=== PATIENT | male | born 1990 | race Caucasian/White ===

== ENCOUNTER 2023-06-07 15:44 | Emergency (ER) | payer OTHER, SELFPAY ==
[2023-06-07 15:52] VITALS: BP 155/89
[2023-06-07] MEDS: TOBREX 0.3% EYE DROPS 1 DROP OPHTH (18:37)
--- NOTE | 2023-06-07 20:46 | ED.SKININJ ---
HPI-Injury
General
Chief Complaint: Eye Problems
Source: patient
Exam Limitations: none
Time Seen by Provider: 06/07/23 18:10
Nursing documentation reviewed up to this point in time: agreed with
Travel History
Have you had any contact with someone who has COVID-19?: No
Do you have any symptoms of coronavirus? Fever > 100 degrees, chills, cough, shortness of breath, sore throat, loss of taste or smell, muscle aches, or headache?: No
History of Present Illness-Injury
Is this injury a work related problem?: No
Is pt an associate of [facility]?: No
Initial Injury comments:
Patient to ED with FB sensation to left eye. States he was grinding metal and felt something get into his eye. Incident occurred today. Brought self to ED for eval.
Past History
Past History
ED Past Medical History: Asthma
ED Past Surgical History: None
Social History
Tobacco: Non-smoker
Alcohol: None
Review of Systems
Review of Systems
Allergies reviewed?: Yes
All Other Systems: ROS reviewed and negative except as documented in HPI and ROS
Constitutional: Reports no symptoms
EENT: Reports no symptoms (FB sensation left eye)
Musculoskeletal: Reports no symptoms
Skin: Reports no symptoms
Neurological: Reports no symptoms
Psychiatric: Reports no symptoms
Phy Exam
General Physical Exam
General Presentation: well appearing and no apparent distress
General age: appears stated age
General Skin: warm and dry
General Habitus: normal
General Mental: alert
Eye Exam
Eye Exam: PERRL, EOMI, conjunctiva normal, globe normal and other (Lids everted, swept with qtip, no foreign body detected. No corneal FB detected on slit lamp exam)
Conjunctival Changes: left: watery discharge
Cornea Exam: abrasion: Left (superficial )
Type of Exam: slit lamp, simple and fluorescein
Musculoskeletal Exam
Musculoskeletal Exam: full ROM and neuro vasc intact
Skin Exam
Skin Exam: normal color, warm/dry and no rash
Psychiatric Exam
Psychiatric Exam: normal mood/affect
Course
Orders/Labs/Results
Orders:
Orders
06/07/23 18:29
Tobramycin 0.3% [Tobrex 0.3% Eye Drops] See Dose Instructions OPHTH NOW STA
Vital Signs
Initial and Last Documented VS:
Initial Vital Signs
Temp Pulse Resp BP Pulse Ox
97.4 F 67 18 155/89 100
06/07/23 15:52 06/07/23 15:52 06/07/23 15:52 06/07/23 15:52 06/07/23 15:52
Last Documented Vital Signs
Temp Pulse Resp BP Pulse Ox
97.4 F 67 18 155/89 100
06/07/23 15:52 06/07/23 15:52 06/07/23 15:52 06/07/23 15:52 06/07/23 15:52
*Critical Care Note
Total Time (30-74mins, 75-104mins- exclusive of procedures): Not Applicable
ED Attending Note
-
Portions of this chart may have been created with voice recognition software.� Occasional wrong word or��sound alike� substitutions may have occurred due to the inherent limitations of voice recognition software.
Discharge Plan
Departure
Patient Disposition: Home (Routine Discharge)
Date of Disposition: 06/07/23
Time of Disposition: 18:29
Patient with high blood pressure during this ER visit?: No
Condition: Good
Covid-19: Not Applicable
Discharge Problem:
Corneal abrasion
Instructions: Corneal Abrasion (DC), How to Use Eye Drops
Prescriptions:
New
tobramycin 0.3 % drops
1 drp ophthalmic (eye) Q4HWA Qty: 5 0RF
Referrals:
UNKNOWN - PT DOES,NOT KNOW [Family Provider] -
Activity Restrictions/Additional Instructions:
Follow up with your opthalmologist in the AM
Interventions
Interventions:
*Nursing Disposition Last Done: 06/07/23 18:43
Discharge Date and Time
Discharge Date/Time: 06/07/23 18:46
Print Language: SINHALA
== END 2023-06-07 18:46 | disposition home or self-care (01) ==
LOC: EMR 15:44
PROVIDERS: EMERGENCY PHYSICIAN Emergency Medicine
DX: S05.02XA Injury of conjunctiva and corneal abrasion without foreign body, left eye, initial encounter (principal); X58.XXXA Exposure to other specified factors, initial encounter
CPT/HCPCS: 99283